=== PATIENT | female | born 1995 | race African-American/Black ===

== ENCOUNTER 2017-05-23 12:32 | Emergency (ER) | payer BC ==
[2017-05-23] MEDS ORDERED: Ketorolac INJ* 30 MG/ML 1 ML VIAL IV ONE (13:35)
[2017-05-23] MEDS ORDERED: NS 0.9% 1000 ML* 1,000 ML IV ONE (13:35)
[2017-05-23] MEDS ORDERED: Ondansetron INJ* 2 MG/ML VIAL IV ONE (13:35)
[2017-05-23] MEDS ORDERED: Metoclopramide IV* 5 MG/ML 2 ML VIAL IV SLOW PU ONE (14:18)
--- NOTE | 2017-05-23 14:23 | RAD ---
Indication: Right lower quadrant pain. Real-time sonography of the pelvis was performed utilizing endovaginal technique. The uterus measures 7.0 x 2.9 x 4.5 cm. Endometrial echo measures 3 mm. The right ovary measures 2.9 x 1.8 x 2.8 cm. Left ovary measures 3.3 x 1.0 x 1.6 cm. Doppler interrogation demonstrates normal flow. IMPRESSION: Unremarkable pelvic ultrasound.
[2017-05-23 14:27] LABS: Hematocrit 34 % (35-47); Hemoglobin 10.8 g/dl (12.0-16.0); Mean Corpuscular HGB Conc 32 g/dl (31-36); Mean Corpuscular Hemoglobin 26 pg (27-31); Mean Corpuscular Volume 82 fL (80-97); Mean Platelet Volume 8 um3 (7.4-10.4); Red Blood Count 4.13 10^6/ul (4.0-5.4); Red Cell Distribution Width 16 % (10.5-15); White Blood Count 5.5 10^3/ul (3.5-10.8)
[2017-05-23 14:38] LABS: ALT 15 U/L (7-52); AST 19 U/L (13-39); Albumin 4.2 g/dL (3.2-5.2); Alkaline Phosphatase 51 U/L (34-104); Anion Gap 4 mmol/L (2-11); BUN/Creatinine Ratio 9.9 (8-20); Blood Urea Nitrogen 8 mg/dL (6-24); C Reactive Protein < 1.00 mg/L (< 5.00); CO2 Carbon Dioxide 27 mmol/L (22-32); Calcium 9.3 mg/dL (8.6-10.3); Chloride 104 mmol/L (101-111); EGFR African American 113.7 (>60); EGFR Non-African American 88.4 (>60); Globulin 3.1 g/dL (2-4); Glucose 122 mg/dL (70-100); Lipase < 10 U/L (11.0-82.0); Potassium 3.8 mmol/L (3.5-5.0); Sodium 135 mmol/L (133-145); Total Protein 7.3 g/dL (6.4-8.9)
[2017-05-23 15:19] LABS: UR Preg Internal Control QC Line Present
[2017-05-23 15:23] LABS: Urine Bacteria Absent (Absent); Urine Bilirubin Negative (Negative); Urine Glucose Negative (Negative); Urine Nitrite Negative (Negative)
[2017-05-23] MEDS ORDERED: Iohexol 300* (CONTRAST) 10 ML SDV IV ONE (15:38)
[2017-05-23 16:36] VITALS: BP 116/76
--- NOTE | 2017-05-23 16:44 | RAD ---
INDICATION: RIGHT lower quadrant pain. COMPARISON: Pelvic ultrasound of the same date. TECHNIQUE: Multidetector CT images were obtained from the lung bases to the ischial tuberosities with 93 mL Omnipaque 300 IV and oral contrast. Multiplanar reformation. REPORT: Unremarkable visualized inferior thorax. The liver, gallbladder, pancreas, and spleen are unremarkable. Negative for CT abnormality of the upper GI, small bowel, or appendix visualized overlying the RIGHT pelvic sidewall. No CT abnormality of the colon evident. Enteric contrast extends to the distal transverse colon. Physiologic trace free pelvic fluid. Negative for free air or significant hernias. Normal adrenal glands. Delayed RIGHT nephrogram and pyelogram. Mild to moderate RIGHT hydroureteronephrosis is traced to a 2 mm ureterovesicular junction stone. No additional urolithiasis visualized. Negative for LEFT hydronephrosis. Unremarkable LEFT ureter. Unremarkable partially distended urinary bladder aside from the RIGHT UVJ stone. Unremarkable LEFT deviated anteverted uterus and bilateral adnexal regions. Negative for lymphadenopathy. Normal diameter abdominal aorta and iliac arteries. Physiologic distention of the IVC. Negative for suspicious focal osseous lesions. IMPRESSION: 1. Mild to moderate RIGHT hydroureteronephrosis and delayed RIGHT nephrogram and pyelogram is traced to a 2 mm ureterovesicular junction stone. 2. Normal appendix documented.
--- NOTE | 2017-05-23 17:07 | ED ---
I, Oh,Yamileth, scribed for Charlotte Schnieder MD on 05/23/17 at 1334 . Abdominal Pain/Female - HPI Summary HPI Summary: This 21 y/o female presents to ED for right sided abd pain since pt woke up at 0900 AM. No radiation of pain to back. Pt decided to visit ED when abd persisted after taking Alleve at 1000 AM. Positive nausea. Negative vomiting or dysuria, fever, vaginal discharge, or diarrhea. Last bowel movement was last night. Negative hx of abd surgery. PMHx does not includes IBS or ovarian cyst. . Pt is currently menstruating. FHx is positive for DM. 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 Occasional drinker. Nonsmoker. R/b/a of CT abd scan and/or US is discussed with pt. Pt expresses understanding. Pt is also agreeable to pelvic exam. - History of Current Complaint Chief Complaint: EDAbdPain Stated Complaint: ABD PAIN Hx Obtained From: Patient ?: No Timing: Constant Pain Intensity: 8 Pain Scale Used: 0-10 Numeric Location: Discrete At: RUQ, Discrete At: RLQ Radiates: No Aggravating Factor(s): Nothing Alleviating Factor(s): Nothing Associated Signs and Symptoms: Positive: Nausea. Negative: Fever, Urinary Symptoms, Vaginal Discharge, Vomiting, Diarrhea Allergies/Adverse Reactions: Allergies Allergy/AdvReac Type Severity Reaction Status Date / Time No Known Allergies Allergy Verified 05/23/17 13:18 PMH/Surg Hx/FS Hx/Imm Hx GI History: Denies: Hx Irritable Bowel History: Denies: Other Problems/Disorders - ovarian cyst Infectious Disease History: Denies: Traveled Outside the [place] in Last 30 Days - Family History Known Family History: Positive: Diabetes - Social History Alcohol Use: Occasionally Hx Substance Use: No Substance Use Type: Reports: None Hx Tobacco Use: No Smoking Status (MU): Never Smoked Tobacco Review of Systems Negative: Fever Positive: Abdominal Pain - right sided, Nausea. Negative: Vomiting, Diarrhea Negative: dysuria, discharge All Other Systems Reviewed And Are Negative: Yes Physical Exam Triage Information Reviewed: Yes Vital Signs On Initial Exam: Initial Vitals Temp Pulse Resp BP Pulse Ox 97.1 F 94 18 112/63 98 05/23/17 12:38 05/23/17 12:38 05/23/17 12:38 05/23/17 12:38 05/23/17 12:38 Vital Signs Reviewed: Yes Appearance: Positive: Well-Appearing, No Pain Distress Skin: Positive: Warm, Skin Color Reflects Adequate Perfusion, Dry Head/Face: Positive: Normal Head/Face Inspection Eyes: Positive: EOMI, SHARRON Neck: Positive: Supple, Nontender Respiratory/Lung Sounds: Positive: Clear to Auscultation, Breath Sounds Present Cardiovascular: Positive: RRR, Pulses are Symmetrical in both Upper and Lower Extremities Abdomen Description: Positive: Other: - RUQ tenderness Musculoskeletal: Positive: Strength/ROM Intact Neurological: Positive: Sensory/Motor Intact, Alert, Oriented to Person Place, Time Psychiatric: Positive: Affect/Mood Appropriate AVPU Assessment: Alert Diagnostics - Vital Signs Vital Signs Temp Pulse Resp BP Pulse Ox 05/23/17 12:38 97.1 F 94 18 112/63 98 - Laboratory Lab Results: Lab Results 05/23/17 05/23/17 05/23/17 Range/Units 13:25 13:25 14:53 WBC 5.5 (3.5-10.8) 10^3/ul RBC 4.13 (4.0-5.4) 10^6/ul Hgb 10.8 L (12.0-16.0) g/dl Hct 34 L (35-47) % MCV 82 (80-97) fL MCH 26 L (27-31) pg MCHC 32 (31-36) g/dl RDW 16 H (10.5-15) % Plt Count 305 (150-450) 10^3/ul MPV 8 (7.4-10.4) um3 Neut % (Auto) 79.7 (38-83) % Lymph % (Auto) 14.2 L (25-47) % [place]oup % (Auto) 3.4 (1-9) % Eos % (Auto) 1.3 (0-6) % Baso % (Auto) 1.4 (0-2) % Absolute Neuts (auto) 4.4 (1.5-7.7) 10^3/ul Absolute Lymphs (auto) 0.8 L (1.0-4.8) 10^3/ul Absolute Monos (auto) 0.2 (0-0.8) 10^3/ul Absolute Eos (auto) 0.1 (0-0.6) 10^3/ul Absolute Basos (auto) 0.1 (0-0.2) 10^3/ul Absolute Nucleated RBC 0 10^3/ul Nucleated RBC % 0 Sodium 135 (133-145) mmol/L Potassium 3.8 (3.5-5.0) mmol/L Chloride 104 (101-111) mmol/L Carbon Dioxide 27 (22-32) mmol/L Anion Gap 4 (2-11) mmol/L BUN 8 (6-24) mg/dL Creatinine 0.81 (0.51-0.95) mg/dL Est GFR ( Amer) 113.7 (>60) Est GFR (Non-Af Amer) 88.4 (>60) BUN/Creatinine Ratio 9.9 (8-20) Glucose 122 H (70-100) mg/dL Calcium 9.3 (8.6-10.3) mg/dL Total Bilirubin 0.70 (0.2-1.0) mg/dL AST 19 (13-39) U/L ALT 15 (7-52) U/L Alkaline Phosphatase 51 (34-104) U/L C-Reactive Protein < 1.00 (< 5.00) mg/L Total Protein 7.3 (6.4-8.9) g/dL Albumin 4.2 (3.2-5.2) g/dL Globulin 3.1 (2-4) g/dL Albumin/Globulin Ratio 1.4 (1-3) Lipase < 10 L (11.0-82.0) U/L Beta HCG, Quant < 0.60 mIU/mL Urine Color Yellow Urine Appearance Clear Urine pH 7.0 (5-9) Ur Specific Mize 1.027 (1.010-1.030) Urine Protein 1+(30 mg/dl) H (Negative) Urine Ketones Trace H (Negative) Urine Blood Negative (Negative) Urine Nitrate Negative (Negative) Urine Bilirubin Negative (Negative) Urine Urobilinogen Negative (Negative) Ur Leukocyte Esterase Negative (Negative) Urine WBC (Auto) Trace(0-5/hpf) (Absent) Urine RBC (Auto) 1+(3-5/hpf) H (Absent) Ur Squamous Epith Cells Present H (Absent) Urine Bacteria Absent (Absent) Urine Glucose Negative (Negative) Urine Ascorbic Acid Not Reportable Urine Test Negative (Negative) Result Diagrams: 05/23/17 13:25 05/23/17 13:25 Lab Statement: Any lab studies that have been ordered have been reviewed, and results considered in the medical decision making process. - CT CT Ab/P CT Interpretation: Positive (See Comments) - 1. Mild to moderate RIGHT hydroureteronephrosis and delayed RIGHT nephrogram and pyelogram is traced to a 2 mm ureterovesicular junction stone. 2. Normal appendix documented. CT Interpretation Completed By: Radiologist - Additional Comments Diagnostic Additional Comments: US transvaginal -- normal pelvic US. Re-Evaluation - Re-Evaluation First Eval Re-Evaluation Time: 14:19 Comment: MD in room to perform pelvic exam with PHILIPP Rowley. Mild amount of blood noted. Mild left adnexal tenderness. No cervical motion tenderness. Normal sized uterus. Second Eval Re-Evaluation Time: 15:43 Comment: MD in room to re-evaluate the pt. Abdominal Pain Fem Course/Dx - Course Course Of Treatment: 21 yo female with rlq pain ct shows a rt 2mm stone at the uvj p - Diagnoses Provider Diagnoses: Kidney stone on right side Discharge - Discharge Plan Condition: Stable Disposition: HOME Prescriptions: HYDROcodone/ACETAMIN 5-325 MG* [Harrison 5-325 TAB*] 1 tab PO Q8H PRN #14 tab MDD 3 PRN Reason: Pain Tamsulosin CAP* [Flomax CAP*] 0.4 mg PO DAILY #7 cap The documentation as recorded by the Sachin posadas Soohyun accurately reflects the service I personally performed and the decisions made by me, Charlotte Schneider MD.
== END 2017-05-23 17:30 | disposition home or self-care (01) ==
LOC: ED 12:32
DX: N20.0 Calculus of kidney (principal); R11.0 Nausea; R10.9 Unspecified abdominal pain
CPT/HCPCS: 36415; 74177; 76830; 80053; 81003; 81015; 81025; 83690; 84702; 85025; 86140; 99283; J1885; J2405; Q9967